=== PATIENT | male | born 1985 | race Caucasian/White ===

== ENCOUNTER 2016-07-03 11:03 | Emergency (ER) | payer OTHER, SELFPAY ==
[~2016-07-03] VITALS: Ht 185.4 cm; Wt 88.9 kg
[2016-07-03 11:04] VITALS: BP 140/76
--- NOTE | 2016-07-03 12:58 | REP ---
Clinical: Left calf pain. Technique: Flores scale and color Doppler evaluation using linear high frequency transducer. Findings: Ultrasound examination of the left lower extremity deep venous structures from the common femoral vein to the popliteal vein demonstrates normal compressibility flow and wave patterns in response to respiration and augmentation. There is no evidence for deep venous thrombosis. Small area of superficial thrombus along the medial mid left calf noted. Impression: No evidence for deep venous thrombosis. Small area of superficial thrombus at the level of the mid calf. Signed by Arsenio Manning MD 07/03/2016 12:50 P
== END 2016-07-03 13:21 | disposition home or self-care (01) ==
LOC: M ED 11:58
DX: I82.812 Embolism and thrombosis of superficial veins of left lower extremity (principal)